=== PATIENT | female | born 2005 | race African-American/Black ===

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

== ENCOUNTER 2025-01-05 13:36 | Inpatient (IN) | payer OTHER, MEDICAID ==
[~2025-01-05] VITALS: Ht 157.5 cm; Wt 61.9 kg
[2025-01-05] MEDS: NS 0.9% IV STA (14:01)
[2025-01-05] MEDS: [UNRECOGNIZED DRUG - OTHER] IV STA (14:01)
[2025-01-05] MEDS: ACETAMINOPHEN 325 MG TAB PO ONE ×2 (14:01→21:05)
[2025-01-05 14:09] LABS: BASO # 0.0 10^3/uL (0.0-0.2); BASO % 0.1 % (0.0-1.0); EOS # 0.0 10^3/uL (0.0-0.5); EOS % 0.0 % (0.0-3.0); LYMPH # 0.9 10^3/uL (1.5-5.0); LYMPH % 4.2 % (24.0-44.0); MONO # 1.7 10^3/uL (0.0-0.8); MONO % 8.2 % (2.0-8.0); NEUTROPHILS # 17.7 10^3/uL (1.5-8.5); NEUTROPHILS % 87.0 % (36.0-66.0); PLATELET COUNT, AUTOMATED 259 10^3/uL (150-450)
[2025-01-05] MEDS: ONDANSETRON 4MG 2ML VIAL IV ONE (14:15)
[2025-01-05] MEDS: ACETAMINOPHEN *IV* 1,000 MG in IV 1 EA IV ONE (14:15)
[2025-01-05 14:16] LABS: ERYTHROCYTE SEDIMENTATION RATE 34 mm/hr (0-20)
[2025-01-05 14:31] LABS: ALT/SGPT 14 U/L (7.0-40); AST/SGOT 11 U/L (<34); CALCIUM LEVEL 8.1 MG/DL (8.5-10.1); CARBON DIOXIDE LEVEL 23 MMOL/L (20-31); CHLORIDE LEVEL 103 MMOL/L (98-107); CREATININE FOR GFR 0.64 MG/DL (0.55-1.30); GLOMERULAR FILTRATION RATE > 90.0 (>60); POTASSIUM SERUM 3.7 MMOL/L (3.5-5.1); SODIUM LEVEL 139 MMOL/L (136-145)
[2025-01-05 14:40] LABS: HCG, SERUM QUALITATIVE NEGATIVE (NEGATIVE)
[2025-01-05 14:41] LABS: C REACTIVE PROTEIN QUANTITATIV 12.04 MG/DL (<1.0)
[2025-01-05] MEDS ORDERED: ISOVUE-370 76% 100 ML VIAL As Ordered ONE (14:55)
[2025-01-05] MEDS: NS 0.9% IV ONE (15:10)
[2025-01-05] MEDS: [UNRECOGNIZED DRUG - OTHER] IV ONE (15:10)
[2025-01-05] MEDS: PIPERACILLIN/TAZOBACTAM SOD 3.375 GM in DEXTROSE 5% (D5W) ADV/MINI-BAG 50 ML IV ONE (15:27)
[2025-01-05] MEDS: NS (Normal Saline) 0.9% 1,000 ML IV SCH (17:05)
[2025-01-05] MEDS: LIDOCAINE W/EPINEPHrine 1% 20 ML VIAL SC ONE (18:58)
[2025-01-05] MEDS ORDERED: ACETAMINOPHEN 325 MG TAB PO PRN (20:50)
[2025-01-05] MEDS ORDERED: GNPTAB36 PO (21:25)
[2025-01-05] MEDS ORDERED: VENTAER INH (21:25)
[2025-01-05] MEDS ORDERED: ACET-683 PO (21:25)
[2025-01-05] MEDS ORDERED: MONT10TA97 PO (21:25)
[2025-01-05] MEDS ORDERED: BUDE10.22 INH (21:25)
[2025-01-05] MEDS ORDERED: THERTAB52 PO (21:26)
[2025-01-05] MEDS ORDERED: B-12100010 PO (21:26)
[2025-01-05] MEDS ORDERED: HOME MED LIST COMPLETE! XX SCH (21:30)
[2025-01-05 21:35] LABS: MAGNESIUM LEVEL 1.6 MG/DL (1.8-2.4)
[2025-01-05] MEDS: VANCOMYCIN HCL 1,250 MG, VIAL MATE ADAPTER 1 EACH in NS 250 ML IV ONE (21:45)
[2025-01-05] MEDS ORDERED: FLUTISP (21:55)
[2025-01-05] MEDS ORDERED: FLUTICASONE PROPIONATE 0.05% NASAL SPRAY 16 GM PRN (22:20)
[2025-01-06] VITALS (9 sets, daily range): BP systolic 108–128; BP diastolic 60–83; TEMP 97.8–100.1; O2SAT 94–100
[2025-01-06] MEDS: MAGNESIUM OXIDE 400 MG TAB PO SCH (00:11)
[2025-01-06] MEDS: MONTELUKAST 10 MG TAB PO SCH (00:11)
[2025-01-06] MEDS: LR 1,000 ML IV SCH (00:12)
[2025-01-06] MEDS: cefTRIAXone SOD 1 GM in DEXTROSE 5% (D5W) ADV/MINI-BAG 50 ML IV SCH (04:10)
[2025-01-06] MEDS: VANCOMYCIN HCL 1,000 MG, VIAL MATE ADAPTER 1 EACH in NS 250 ML IV SCH ×2 (05:21→18:25)
[2025-01-06] MEDS: ACETAMINOPHEN 500 MG TAB PO SCH (05:22)
[2025-01-06 05:46] LABS: PLATELET COUNT, AUTOMATED 276 10^3/uL (150-450)
[2025-01-06 06:12] LABS: CALCIUM LEVEL 8.0 MG/DL (8.5-10.1); CARBON DIOXIDE LEVEL 24 MMOL/L (20-31); CHLORIDE LEVEL 105 MMOL/L (98-107); CREATININE FOR GFR 0.60 MG/DL (0.55-1.30); GLOMERULAR FILTRATION RATE > 90.0 (>60); POTASSIUM SERUM 4.1 MMOL/L (3.5-5.1); SODIUM LEVEL 140 MMOL/L (136-145)
[2025-01-06 06:24] LABS: C REACTIVE PROTEIN QUANTITATIV 14.44 MG/DL (<1.0)
[2025-01-06] MEDS: CETIRIZINE 10 MG TAB PO SCH (08:25)
[2025-01-06] MEDS: PIPERACILLIN/TAZOBACTAM SOD 4.5 GM in DEXTROSE 5% (D5W) ADV/MINI-BAG 50 ML IV SCH (08:25)
[2025-01-06] MEDS: ENOXAPARIN 40 MG/0.4 ML SYRINGE (J1650 PER 10MG) SC SCH (08:26)
[2025-01-06] MEDS: ALBUTEROL 90 MCG/ACT 8 GM HFA INHALER INH SCH (11:47)
[2025-01-06] MEDS: SYMBICORT 80/4.5MCG INHALER 6GM INH SCH (11:47)
[2025-01-07 03:54] VITALS: BP 120/68; TEMP 98.4; O2SAT 100
[2025-01-07 05:45] LABS: BASO # 0.1 10^3/uL (0.0-0.2); BASO % 0.5 % (0.0-1.0); EOS # 0.2 10^3/uL (0.0-0.5); EOS % 1.4 % (0.0-3.0); LYMPH # 1.9 10^3/uL (1.5-5.0); LYMPH % 15.0 % (24.0-44.0); MONO # 1.0 10^3/uL (0.0-0.8); MONO % 8.0 % (2.0-8.0); NEUTROPHILS # 9.4 10^3/uL (1.5-8.5); NEUTROPHILS % 74.6 % (36.0-66.0); PLATELET COUNT, AUTOMATED 290 10^3/uL (150-450)
[2025-01-07 06:19] LABS: CALCIUM LEVEL 8.3 MG/DL (8.5-10.1); CARBON DIOXIDE LEVEL 26 MMOL/L (20-31); CHLORIDE LEVEL 106 MMOL/L (98-107); CREATININE FOR GFR 0.70 MG/DL (0.55-1.30); GLOMERULAR FILTRATION RATE > 90.0 (>60); POTASSIUM SERUM 4.0 MMOL/L (3.5-5.1); SODIUM LEVEL 143 MMOL/L (136-145)
[2025-01-07 06:32] LABS: C REACTIVE PROTEIN QUANTITATIV 11.83 MG/DL (<1.0)
[2025-01-07 09:27] VITALS: BP 136/79; TEMP 98; O2SAT 98
[2025-01-07 12:00] VITALS: BP 133/89; TEMP 97.6; O2SAT 100
[2025-01-07 16:00] VITALS: BP 131/80; TEMP 98.2; O2SAT 100
[2025-01-07 20:00] VITALS: BP 116/69; TEMP 98; O2SAT 100
[2025-01-08] VITALS: BP 121/77; TEMP 98.2; O2SAT 100
[2025-01-08 05:00] VITALS: BP 120/63; TEMP 98.1; O2SAT 100
[2025-01-08 07:36] LABS: C REACTIVE PROTEIN QUANTITATIV 6.00 MG/DL (<1.0)
[2025-01-08 08:00] VITALS: BP 131/81; TEMP 97.9; O2SAT 100
[2025-01-08 10:51] LABS: CALCIUM LEVEL 9.0 MG/DL (8.5-10.1); CARBON DIOXIDE LEVEL 25 MMOL/L (20-31); CHLORIDE LEVEL 108 MMOL/L (98-107); CREATININE FOR GFR 0.75 MG/DL (0.55-1.30); GLOMERULAR FILTRATION RATE > 90.0 (>60); POTASSIUM SERUM 4.0 MMOL/L (3.5-5.1); SODIUM LEVEL 147 MMOL/L (136-145)
[2025-01-08 12:00] VITALS: BP 132/84; TEMP 98; O2SAT 100
[2025-01-08] MEDS: VANCOMYCIN HCL 1,000 MG, VIAL MATE ADAPTER 1 EACH in NS 250 ML IV SCH (13:42)
[2025-01-08] MEDS: MAALOX 30 ML SUSP *UDC PO PRN (19:49)
[2025-01-08 20:00] VITALS: BP 133/89; TEMP 98.9; O2SAT 98
[2025-01-08] MEDS: ONDANSETRON 4MG TAB PO PRN (23:13)
[2025-01-09] VITALS: BP 133/78; TEMP 97.9; O2SAT 100
[2025-01-09] MEDS: PANTOPRAZOLE 40MG VIAL IV STA (02:35)
[2025-01-09 04:33] VITALS: BP 133/85; TEMP 98.6; O2SAT 98
[2025-01-09 08:00] VITALS: BP 138/82; TEMP 98.2; O2SAT 99
[2025-01-09] MEDS ORDERED: DOXY-440 PO (11:03)
[2025-01-09] MEDS ORDERED: CEFD1CAP9 PO (11:03)
[2025-01-09] MEDS ORDERED: METR-265 PO (11:14)
== END 2025-01-09 12:13 | disposition home or self-care (01) | DRG 872 ==
LOC: EDBD 13:36 → M ED 13:36 → M ED INP 20:49 → M MS5PR 01-06 02:37 → M MS4PR 01-06 08:05
PROVIDERS: ADMIT Student in an Organized Health Care Education/Training Program; ATTEND Student in an Organized Health Care Education/Training Program
DX: A41.9 Sepsis, unspecified organism (principal); L02.31 Cutaneous abscess of buttock; J45.909 Unspecified asthma, uncomplicated; E83.42 Hypomagnesemia; Z79.51 Long term (current) use of inhaled steroids; Z79.899 Other long term (current) drug therapy; Z88.6 Allergy status to analgesic agent

== ENCOUNTER → 2025-01-28 | Outpatient (REF) | payer OTHER, MEDICAID ==
[~2025-01-28] MED LIST changes: +ACET-683 PO; +B-12100010 PO; +BUDE10.22 INH; +CEFD1CAP9 PO; +DOXY-440 PO; +FLUTISP; +GNPTAB36 PO; +METR-265 PO; +MONT10TA97 PO; +THERTAB52 PO; +VENTAER INH
[2025-01-28 16:57] LABS: BASO # 0.1 10^3/uL (0.0-0.2); BASO % 1.5 % (0.0-1.0); EOS # 0.2 10^3/uL (0.0-0.5); EOS % 4.0 % (0.0-3.0); LYMPH # 2.0 10^3/uL (1.5-5.0); LYMPH % 43.2 % (24.0-44.0); MONO # 0.4 10^3/uL (0.0-0.8); MONO % 9.1 % (2.0-8.0); NEUTROPHILS # 2.0 10^3/uL (1.5-8.5); NEUTROPHILS % 41.8 % (36.0-66.0); PLATELET COUNT, AUTOMATED 358 10^3/uL (150-450)
[2025-01-28 17:02] LABS: C REACTIVE PROTEIN QUANTITATIV < 0.50 MG/DL (<1.0); CALCIUM LEVEL 10.0 MG/DL (8.5-10.1); CARBON DIOXIDE LEVEL 27 MMOL/L (20-31); CHLORIDE LEVEL 102 MMOL/L (98-107); CREATININE FOR GFR 0.69 MG/DL (0.55-1.30); GLOMERULAR FILTRATION RATE > 90.0 (>60); MAGNESIUM LEVEL 1.6 MG/DL (1.8-2.4); POTASSIUM SERUM 4.4 MMOL/L (3.5-5.1); SODIUM LEVEL 140 MMOL/L (136-145); TOTAL 25(OH) VITAMIN D 50.1 NG/ML (20.0-100.0)
[2025-01-28 17:03] LABS: FREE T4 1.07 NG/DL (0.83-1.43)
== END ==
LOC: M LAB REF 16:30
PROVIDERS: ATTEND Nurse Practitioner Family
DX: L02.91 Cutaneous abscess, unspecified (principal); R00.0 Tachycardia, unspecified; E55.9 Vitamin D deficiency, unspecified